=== PATIENT | female | born 1935 | race Caucasian/White ===

== ENCOUNTER 2016-06-27 22:33 | Emergency (ER) | payer MEDICARE, BC | END 2016-06-28 01:59 | disposition home or self-care (01) | LOC: ER 22:33 | DX: I73.9 Peripheral vascular disease, unspecified (principal); E78.5 Hyperlipidemia, unspecified; I10 Essential (primary) hypertension; Z90.710 Acquired absence of both cervix and uterus; Z98.890 Other specified postprocedural states | CPT/HCPCS: 36415; Q9967 ==